=== PATIENT | female | born 1965 | race Two or more races ===

== ENCOUNTER 2023-05-12 14:04 | Outpatient (CLI) | payer OTHER | END 2023-05-12 14:14 | disposition home or self-care (01) | LOC: SONOGRAMA 14:04 | PROVIDERS: ATTEND Pathology Anatomic Pathology & Clinical Pathology | DX: D34 Benign neoplasm of thyroid gland (principal); E07.89 Other specified disorders of thyroid; E04.2 Nontoxic multinodular goiter ==

== ENCOUNTER 2024-09-19 14:33 | Emergency (ER) | payer OTHER ==
[~2024-09-19] VITALS: Ht 152.4 cm; Wt 56.7 kg
== END 2024-09-19 16:14 | disposition home or self-care (01) ==
LOC: ER 15:10
DX: Z48.89 Encounter for other specified surgical aftercare (principal); G89.11 Acute pain due to trauma; M79.646 Pain in unspecified finger(s)